=== PATIENT | male | born 1975 | race Caucasian/White ===

== ENCOUNTER → 2021-11-19 | Outpatient (CLI) | payer OTHER, MEDICAID, SELFPAY ==
[2021-11-19 17:05] LABS: Absolute Lymphocyte Count 1.39 X10^3/uL (0.83-4.51); Absolute Neutrophil Count 4.7 X10^3/uL (2.0-7.7); Basophil# 0.04 X10^3/uL; Basophil% 0.6 % (0-1); Eosinophil# 0.04 X10^3/uL; Eosinophils% 0.6 % (0-5); Hematocrit 45.8 % (40-54); Hemoglobin 15.4 g/dL (13.0-16.5); Lymphocyte # 1.39 X10^3/ul (0.83-4.51); Lymphocyte % 20.4 % (19-41); Mean Corp Hgb Conc 33.6 g/dL (32-36); Mean Corpuscular Hgb 28.6 pg (27.0-32.0); Mean Platelet Vol. 11.1 fl (6.2-12.0); Monocyte# 0.62 X10^3/uL; Monocyte% 9.1 % (0-10); NRBC Flagged by Analyzer 0 % (0-5); Neutrophil # 4.72 X10^3/uL (2.7-7.7); Neutrophil % 69.2 % (47-70); Platelet Count 204 K/mm3 (150-450); RBC Distribution Width CV 12.7 % (11.6-14.6); RBC Distribution Width SD 39.1 fl (35.1-43.9); Red Blood Count 5.39 M/mm3 (4.6-6.2); White Blood Count 6.8 K/mm3 (4.4-11.0)
[2021-11-19 17:32] LABS: Erythrocyte Sedimentation Rate 3 mm/hr (0-20)
[2021-11-19 18:57] LABS: Anion Gap 9 (5-15); BUN 18 mg/dL (7-18); BUN/Creat Ratio 15.9 RATIO (10-20); Calcium,Total 9.6 mg/dL (8.5-10.1); Chloride 106 mmol/L (98-107); Cholesterol 224 mg/dL (200); Creatinine, Serum 1.13 mg/dL (0.70-1.30); EST Glomerular Filtration Rate 75 mL/min (>60); Est Glom Filt Rate - Afr Amer 91 mL/min (>60); Glucose 84 mg/dL (74-106); High Density Lipoprotein 65 mg/dL; Potassium 3.9 mmol/L (3.5-5.1); Sodium Level 141 mmol/L (136-145); Thyroid Stim Hormone (TSH) 1.16 uIU/mL (0.358-3.74); Triglycerides 53 mg/dL; Very Low Density Lipoprotein 11 mg/dL (5-40)
[2021-11-22 11:51] LABS: ANTINUCLEAR ANTIBODIES DIRECT Negative (Negative)
== END | disposition home or self-care (01) ==
PROVIDERS: PCP Family Medicine; Referring Provider Family Medicine; Visit Provider Family Medicine
DX: I73.00 Raynaud's syndrome without gangrene (principal); Z13.1 Encounter for screening for diabetes mellitus; Z13.220 Encounter for screening for lipoid disorders
CPT/HCPCS: 36415; 80048; 80061; 84443; 85025; 85652; 86038

== ENCOUNTER → 2023-02-04 | Outpatient (CLI) | payer OTHER, MEDICAID, SELFPAY ==
[2023-02-04 17:48] LABS: Absolute Lymphocyte Count 4.33 X10^3/uL (0.83-4.51); Absolute Neutrophil Count 4.2 X10^3/uL (2.0-7.7); Basophil# 0.04 X10^3/uL; Basophil% 0.4 % (0-1); Hematocrit 46.3 % (40-54); Hemoglobin 15.4 g/dL (13.0-16.5); Lymphocyte # 4.33 X10^3/ul (0.83-4.51); Lymphocyte % 45.8 % (19-41); Mean Corp Hgb Conc 33.3 g/dL (32-36); Mean Corpuscular Hgb 27.8 pg (27.0-32.0); Mean Corpuscular Volume 83.6 fL (80-94); Mean Platelet Vol. 12.5 fl (6.2-12.0); Monocyte% 9.5 % (0-10); NRBC Flagged by Analyzer 0 % (0-5); Neutrophil # 4.15 X10^3/uL (2.7-7.7); Neutrophil % 43.9 % (47-70); POSITIVE COUNT YES; POSITIVE MORPHOLOGY YES; Platelet Count 97 K/mm3 (150-450); RBC Distribution Width CV 13.2 % (11.6-14.6); RBC Distribution Width SD 40.5 fl (35.1-43.9); Red Blood Count 5.54 M/mm3 (4.6-6.2); White Blood Count 9.5 K/mm3 (4.4-11.0)
[2023-02-04 17:59] LABS: Differential Indicated SCAN CRITERIA MET
[2023-02-04 18:26] LABS: ALB/GLOB Ratio 0.9 RATIO (0.9-2.4); AST(SGOT) 954 U/L (15-37); Alanine Aminotransfer ALT/SGPT 969 U/L (16-61); Albumin, Serum 3.5 g/dL (3.2-5.0); Alkaline Phosphatase 126 U/L (45-117); Anion Gap 5 (5-15); BUN 11 mg/dL (7-18); BUN/Creat Ratio 9.3 RATIO (10-20); Calcium,Total 9.2 mg/dL (8.5-10.1); Chloride 102 mmol/L (98-107); Creatinine, Serum 1.18 mg/dL (0.70-1.30); EST Glomerular Filtration Rate 71 mL/min (>60); Est Glom Filt Rate - Afr Amer 86 mL/min (>60); Globulin 3.8 g/dL (2.2-4.2); Glucose 117 mg/dL (74-106); Potassium 4.2 mmol/L (3.5-5.1); Protein, Total 7.3 g/dL (6.4-8.2); Sodium Level 136 mmol/L (136-145)
[2023-02-04 19:53] LABS: Atypical Lymphocyte RARE %; Differential Comment SCANNED; Erythrocyte Sedimentation Rate 12 mm/hr (0-20)
== END | disposition home or self-care (01) ==
LOC: MFPLAB 15:30
PROVIDERS: PCP Family Medicine; Visit Provider Family Medicine
DX: R50.9 Fever, unspecified (principal)
CPT/HCPCS: 36415; 80053; 85025; 85652

== ENCOUNTER → 2023-02-09 | Outpatient (CLI) | payer OTHER, SELFPAY ==
--- NOTE | 2023-02-09 10:04 | US_ITS ---
STUDY: ABDOMINAL ULTRASOUND - RIGHT UPPER QUADRANT REASON FOR VISIT: Male, 47 years old elevated lft''s TECHNIQUE: Ultrasound evaluation of the right upper quadrant was performed with real-time and static edgar-scale imaging. TECHNICAL QUALITY: Adequate. COMPARISON: None. FINDINGS: Liver: The liver measures 16.2 cm. There is normal echogenicity of the liver. The bile ducts are within normal limits. There is hepatic color flow. The direction of portal flow is hepatopetal. There is no demonstrated mass lesion. Calcified hepatic granulomas. Gallbladder: Normal distended gallbladder. The gallbladder wall measures 1.8 mm. There is a negative sonographic James''s sign. There is no pericholecystic fluid. There are no gallstones. Common Bile Duct (C.B.D.): The common bile duct measures 4.8 mm. Pancreas: Normal size of the head, body and tail of the pancreas. There is normal echogenicity of the pancreas. There is no demonstrated pancreatic mass or cyst. Right Kidney: Normal size of the right kidney. The right kidney measures 10.6 cm x 4.6 x 4.5 cm. Normal renal cortex. The right cortex measures 1.2 cm. There is no demonstrated renal mass or cyst. There is no right hydronephrosis. US/Abdomen Limited IMPRESSION: Normal right upper quadrant ultrasound examination. Scattered calcified hepatic granulomas. Electronically Signed: Jose Ramon Brandt MD at 15:18 EST ,
== END | disposition home or self-care (01) ==
PROVIDERS: PCP Family Medicine; Referring Provider Family Medicine; Visit Provider Family Medicine
DX: R79.89 Other specified abnormal findings of blood chemistry (principal)
CPT/HCPCS: 76705

== ENCOUNTER → 2023-02-13 | Outpatient (CLI) | payer OTHER, MEDICAID, SELFPAY ==
[2023-02-13 17:51] LABS: Absolute Lymphocyte Count 1.25 X10^3/uL (0.83-4.51); Absolute Neutrophil Count 4.2 X10^3/uL (2.0-7.7); Basophil# 0.07 X10^3/uL; Basophil% 1.1 % (0-1); Eosinophil# 0.05 X10^3/uL; Eosinophils% 0.8 % (0-5); Hematocrit 41.6 % (40-54); Hemoglobin 13.3 g/dL (13.0-16.5); Lymphocyte # 1.25 X10^3/ul (0.83-4.51); Lymphocyte % 19.2 % (19-41); Mean Corpuscular Hgb 27.2 pg (27.0-32.0); Mean Corpuscular Volume 85.1 fL (80-94); Mean Platelet Vol. 12.4 fl (6.2-12.0); Monocyte# 0.93 X10^3/uL; Monocyte% 14.3 % (0-10); NRBC Flagged by Analyzer 0 % (0-5); Neutrophil # 4.19 X10^3/uL (2.7-7.7); Neutrophil % 64.1 % (47-70); Platelet Count 288 K/mm3 (150-450); RBC Distribution Width SD 42.9 fl (35.1-43.9); Red Blood Count 4.89 M/mm3 (4.6-6.2); White Blood Count 6.5 K/mm3 (4.4-11.0)
[2023-02-13 18:47] LABS: ALB/GLOB Ratio 0.6 RATIO (0.9-2.4); AST(SGOT) 104 U/L (15-37); Alanine Aminotransfer ALT/SGPT 216 U/L (16-61); Albumin, Serum 2.9 g/dL (3.2-5.0); Alkaline Phosphatase 177 U/L (45-117); Amylase 431 U/L (25-115); Anion Gap 5 (5-15); BUN 14 mg/dL (7-18); BUN/Creat Ratio 12.6 RATIO (10-20); Chloride 100 mmol/L (98-107); Creatinine, Serum 1.11 mg/dL (0.70-1.30); EST Glomerular Filtration Rate 76 mL/min (>60); Est Glom Filt Rate - Afr Amer 92 mL/min (>60); GGTP 286 U/L (15-85); Globulin 4.8 g/dL (2.2-4.2); Glucose 108 mg/dL (74-106); Lipase > 250 U/L (13-75); Potassium 4.2 mmol/L (3.5-5.1); Protein, Total 7.7 g/dL (6.4-8.2); Sodium Level 134 mmol/L (136-145)
== END | disposition home or self-care (01) ==
LOC: MFPLAB 16:31
PROVIDERS: PCP Family Medicine; Visit Provider Family Medicine
DX: R50.9 Fever, unspecified (principal)
CPT/HCPCS: 36415; 80053; 82150; 82248; 82977; 83690; 85025

== ENCOUNTER 2023-02-16 17:31 | Emergency (ER) | payer OTHER, MEDICAID, SELFPAY ==
[2023-02-16 17:33] VITALS: BP 118/76; PULSE 91; RESP 18; TEMP 36.4; O2SAT 98; BMI 24.5
--- NOTE | 2023-02-16 18:42 | CT_ITS ---
STUDY: CT ABDOMEN AND PELVIS WITH CONTRAST REASON FOR EXAM: Male, 47 years old. Pancreatitis RADIATION DOSAGE (If Supplied By Facility): CTDIvol = ( 10.33 ) mGy, DLP = ( 556.94 ) mGycm TECHNIQUE: Transaxial images were obtained from the dome of the diaphragm to the symphysis pubis without oral contrast. ml of 100mL Isovue-300 contrast was administered. Sagittal and coronal images were reconstructed. Individualized dose optimization techniques were used for this CT. COMPARISON: Abdominal ultrasound February 09, 2023 FINDINGS: There are chronic interstitial fibrotic changes of the lung bases. The visualized portions of the heart are within normal limits. Normal liver. Normal gallbladder and extrahepatic biliary system. Normal spleen. Normal pancreas. No visualized edema or swelling of the pancreas or peripancreatic inflammatory stranding. No pancreatic calcifications or ductal dilatation is seen. Normal bilateral adrenal glands. Normal right kidney. Normal left kidney. Normal visualized stomach. Normal small intestine. Normal colon. The appendix is visualized and appears normal. No free air or free fluid is present. There is no bowel dilatation or evidence of obstruction. No inflammatory stranding is seen around the bowel loops. There is no demonstrated bowel wall thickening. No diverticula are present. Normal abdominal aorta. Normal inferior vena cava. Normal retroperitoneum. Normal urinary bladder. Small to moderate-sized fat-containing left inguinal hernia noted Normal abdominal wall. Normal osseous structures. CT/Abdomen/Pelvis W IV Cont ONLY IMPRESSION: 1. Negative enhanced CT of the abdomen and pelvis. Electronically Signed: Diogo Ramos MD at 19:33 EST ,
--- NOTE | 2023-02-16 18:45 | EX.ED.DYSGE1 ---
HPI History of Present Illness Chief Complaint: Abn Labs Narrative Narrative: 47-year-old male who denies significant past medical history presents with his at the direction of his primary care provider because he had outpatient laboratory tests and was told that he has pancreatitis. However, he states that he has not had any nausea or vomiting, no abdominal pain. He relates history that over the last 2 weeks, at the beginning of the month, he began having intermittent fevers. He is also had decreased appetite as well. No problems with bowel movements, or urination. However, he has lost 20 pounds in the last few months. He and his state that they did laboratory test for the first time on the first of the month which showed he had elevated liver enzymes. They state that they performed an ultrasound and it did not really show anything. They repeated labs because while his intermittent fevers were improving, he still has not felt quite right with decreased appetite and not wanting to eat. He was told that he had elevated pancreatic enzymes today so he was told to come to the emergency department. [facility] Medical History no medical history no medical history Allergy/AdvReac Type Severity Reaction Status Date / Time poison tatiana extract Allergy Unknown Verified 10/22/19 12:36 Social History Smoking Status: Never smoker ROS ROS ED ROS Narrative Constitutional: Positive intermittent fever, no chills. 20 pound weight loss in 2 weeks. Decreased appetite. HEENT: No sore throat. No neck pain. No loss of vision. No rhinorrhea. Cardiovascular: No chest pain. No palpitations. No pedal edema. Respiratory: No cough, no shortness of breath. Abdominal: No abdominal pain. No nausea. No vomiting. No bloody stools, Genitourinary: No dysuria. No hematuria. Musculoskeletal: No myalgias. No arthralgias. Neurologic: No headaches. No dizziness. No lightheadedness. Skin: No rash. No change in color. Psychiatric: No depression. No anxiety. EXAM Physical Exam Narrative Exam Narrative: Afebrile. Vital signs noted. HEENT: Normocephalic. Atraumatic. PERRL, EOMI. Neck soft and supple. No point tenderness or step off. Cardiovascular: Regular rate and rhythm. No murmurs, rubs, or gallops appreciated. Respiratory: No tachypnea. Lungs clear to auscultation bilaterally. Gastrointestinal: Abdomen soft, nontender, with normoactive bowel sounds. No rebound or guarding. Neurological: Awake. Alert. Nonfocal, nonlateralizing. Skin: No rash. Normal color. No pallor. Musculoskeletal: No pedal edema. Full range of motion extremities. Const Vital Signs: 02/16/23 17:33 02/16/23 18:34 Temperature 97.6 F L Temperature Source Temporal Pulse Rate 91 Respiratory Rate 18 Respiratory Effort Normal Non-Labored Respiratory Pattern Normal Blood Pressure 118/76 Blood Pressure Mean 90 Pulse Ox 98 Oxygen Delivery Method Room Air MDM MDM MDM Narrative Medical decision making narrative: Comprehensive work-up was pursued. Concern would be for cholecystitis or cholangitis, however patient does not appear jaundiced. I am unsure as to the reason for his elevated pancreatic enzymes as he is not showing signs of acute pancreatitis without abdominal pain in the epigastrium, and no nausea or vomiting. Given his weight loss, there is also concern for pancreatic mass. I do feel that CT imaging with IV contrast should be obtained along with repeat laboratory work including CBC, CMP, and lipase. I reviewed the patient's laboratory work and the patient's prior labs from earlier in the month. Today, he has normal white count of 6.3, hemoglobin normal at 14.2, hematocrit 44.5 with platelet count normal at 351. He has slightly elevated potassium of 5.3 which I think is nonspecific, BUN normal at 15 with creatinine 1.14. Glucose appropriately elevated at 101. Patient has slightly elevated AST and ALT of 57 and 143 respectively. In comparison to previous labs, these are down considerably and trending downward. His lipase is elevated at 400, but he has no epigastric tenderness on examination and repeat examination. Obtain CT imaging with IV contrast which shows no acute process, no stranding around the pancreas, no mass. I did discuss the patient with the hospitalist, Dr. Alexia Mcgee. She has spoken with gastroenterology, Dr. Dillon, and it was decided that the patient does not require observation at this time. His transaminases are trending downward. He does not meet any admission criteria for pancreatitis as he is not having any pain or tenderness and he was able to tolerate p.o. at home. Additionally, patient did want more outpatient follow-up and did not necessarily want to be admitted to the hospital or assigned to observation. I feel he can be discharged to follow-up with his primary care provider to ensure that his transaminases are normalizing, and he can follow-up with Dr. Dillon with gastroenterology. It was reported that it was thought that this could all be viral mediated elevation of his liver enzymes. Patient did state he was starting to feel better day by day. I feel he can be discharged through shared decision making. Disposition is discharged home in stable condition. Return instructions were reviewed. History & Record Review Discussion w/independent historian: Patient Additional record(s) reviewed:: Prior labs Lab Data Attestation: I reviewed the patient's lab results. Labs: Laboratory Results - last 24 hr 02/16/23 18:53 WBC 6.3 RBC 5.21 Hgb 14.2 Hct 44.5 MCV 85.4 MCH 27.3 MCHC 31.9 L RDW Std Deviation 43.5 RDW Coeff of Tyrese 14.1 Plt Count 351 MPV 10.1 Immature Gran % (Auto) 0.500 Neut % (Auto) 64.0 Lymph % (Auto) 17.9 L [place] % (Auto) 15.0 H Eos % (Auto) 1.3 Baso % (Auto) 1.3 H Absolute Neuts (auto) 4.1 Absolute Lymphs (auto) 1.13 Nucleated RBC % 0 Sodium 136 Potassium 5.3 H Chloride 102 Carbon Dioxide 29.0 Anion Gap 5 BUN 15 Creatinine 1.14 Estim Creat Clear Calc 81.83 Est GFR (MDRD) Af Amer 89 Est GFR (MDRD) Non-Af 74 BUN/Creatinine Ratio 13.2 Glucose 101 Calcium 9.3 Total Bilirubin 0.80 AST 57 H ALT 143 H Alkaline Phosphatase 166 H Total Protein 7.9 Albumin 2.9 L Globulin 5.0 H Albumin/Globulin Ratio 0.6 L Lipase 406 H Radiography Diagnostic Testing: Clinical Impression(s) from Imaging Studies Abdomen/Pelvis CT 02/16/23 18:42 IMPRESSION: 1. Negative enhanced CT of the abdomen and pelvis. Electronically Signed: Diogo Ramos MD at 19:33 EST , Discharge Plan Triage Chief Complaint: Abn Labs ED Provider: Jaswant Henderson Dx/Rx/DC Orders Clinical Impression: Transaminitis, Elevated lipase Primary Care Provider: Bong Thorne Referrals: Bong Thorne MD [Primary Care Provider] - 1 Week if not improving FriendWilmar DO [Med Staff - Active Staff] - As soon as possible Activity Restrictions/Additional Instructions: Follow-up with Dr. Thorne within the next week. Disposition Disposition: Home, Self Care
[2023-02-16] MEDS: 0.9% Normal Saline (1000mL) 1,000 ML 1000 ML IV (18:54)
[2023-02-16 18:59] LABS: Absolute Lymphocyte Count 1.13 X10^3/uL (0.83-4.51); Absolute Neutrophil Count 4.1 X10^3/uL (2.0-7.7); Basophil# 0.08 X10^3/uL; Basophil% 1.3 % (0-1); Eosinophil# 0.08 X10^3/uL; Eosinophils% 1.3 % (0-5); Hematocrit 44.5 % (40-54); Hemoglobin 14.2 g/dL (13.0-16.5); Lymphocyte # 1.13 X10^3/ul (0.83-4.51); Lymphocyte % 17.9 % (19-41); Mean Corp Hgb Conc 31.9 g/dL (32-36); Mean Corpuscular Hgb 27.3 pg (27.0-32.0); Mean Corpuscular Volume 85.4 fL (80-94); Mean Platelet Vol. 10.1 fl (6.2-12.0); Monocyte# 0.95 X10^3/uL; NRBC Flagged by Analyzer 0 % (0-5); Neutrophil # 4.06 X10^3/uL (2.7-7.7); Platelet Count 351 K/mm3 (150-450); RBC Distribution Width CV 14.1 % (11.6-14.6); RBC Distribution Width SD 43.5 fl (35.1-43.9); Red Blood Count 5.21 M/mm3 (4.6-6.2); White Blood Count 6.3 K/mm3 (4.4-11.0)
[2023-02-16 19:55] LABS: ALB/GLOB Ratio 0.6 RATIO (0.9-2.4); AST(SGOT) 57 U/L (15-37); Alanine Aminotransfer ALT/SGPT 143 U/L (16-61); Albumin, Serum 2.9 g/dL (3.2-5.0); Alkaline Phosphatase 166 U/L (45-117); Anion Gap 5 (5-15); BUN 15 mg/dL (7-18); BUN/Creat Ratio 13.2 RATIO (10-20); Calcium,Total 9.3 mg/dL (8.5-10.1); Chloride 102 mmol/L (98-107); Creatinine, Serum 1.14 mg/dL (0.70-1.30); EST Glomerular Filtration Rate 74 mL/min (>60); Est Glom Filt Rate - Afr Amer 89 mL/min (>60); Estimated Creatinine Clearance 81.83 ml/min; Glucose 101 mg/dL (74-106); Lipase 406 U/L (13-75); Potassium 5.3 mmol/L (3.5-5.1); Protein, Total 7.9 g/dL (6.4-8.2); Sodium Level 136 mmol/L (136-145)
== END 2023-02-16 21:02 | disposition home or self-care (01) ==
PROVIDERS: Emergency Provider Emergency Medicine; PCP Family Medicine; Visit Provider Emergency Medicine
DX: R74.01 Elevation of levels of liver transaminase levels (principal); R74.8 Abnormal levels of other serum enzymes
CPT/HCPCS: 74177; 80053; 83690; 85025; 96360; 96361; 99283; J7030; Q9967; A4216